=== PATIENT | male | born 1955 | race African-American/Black ===

== ENCOUNTER 2017-01-03 05:52 | Day surgery (SDC) | payer OTHER ==
[~2017-01-03] VITALS: Ht 190.5 cm; Wt 142.9 kg
--- NOTE | ~2017-01-03 | OP ---
Record Of Operation [facility] [address] [place]. [address] NAME: JOYCE SHIELDS : 59 STATUS : [facility]#: [id number] AGE: 61 ADM/REG DATE : 01/03/17 MR#: [id number] REPORT SERV DATE: 01/03/17 DICTATED BY: CHECO CLAYTON DATE: 01/03/17 REPORT STATUS : Draft TRANSCRIBED BY: JUAN DATE: 01/03/17 DATE OF PROCEDURE: 01/03/2017 PREPROCEDURE DIAGNOSIS: A 1 cm left ureteral calculus. POSTPROCEDURE DIAGNOSIS: A 1 cm left ureteral calculus. PROCEDURE: Left ESWL. SECRETARY ADMINISTRATIVE ASSISTANT: Gogo Jean. ANESTHESIA: MAC. HISTORY: Mr. Shields is a 61-year-old gentleman with a large left ureteral calculus. He has previously undergone one attempt at left ESWL with incomplete stone fragmentation. We discussed treatment options and he requested repeat left ESWL. Risks specific to this procedure include, but not limited to bleeding, infection, incomplete stone fragmentation, Steinstrasse, hematoma, injury to neighboring organs, need for further urologic procedures, anesthesia complications, and so forth. I answered all his questions I believe to his satisfaction. Subsequently, he requested the procedure and provided informed written consent. PROCEDURE IN DETAIL: On 01/03/2017, the patient was brought to the lithotripsy suite. He was placed supine on the Dornier Compact Delta II lithotripter. Biplanar fluoroscopy was used to localize the left ureteral calculus. A time-out was called. The proper patient and procedure were confirmed. Levaquin was administered as a perioperative antibiotic. At this time, the Anesthesia team established monitored anesthesia care. Subsequently, we delivered a total of 3000 shocks at a maximum power level of 6 and rate of 120 shocks per minute to the stone. Fluoroscopy time was 1 minute 47 seconds. The patient tolerated the procedure well without immediate complications and was transferred to the recovery area in stable condition. JUAN C/JUAN Checo Clayton M.D. / [id number] CC: Tanvi Rodriges III, M.D.
[~2017-01-03 05:52] MED LIST: ANTIBIOTIC PO; ARTHROTEC 50 PO; ARTHROTEC 75 PO; ASAB PO; COZAAR100 MG PO; CRESTOR PO; CRESTOR10 PO; FLEX PO; FLONASE NAS; GLUCPH PO; LOVAZA1 GM PO; MOBIC15 MG PO; NORV10 PO; PCET PO; RAPAFLO8 MG PO; TESTERONE TOP; ULTRAM50 PO; VIAGRA100 MG PO; VITAMIN D1000 UNI1 PO
== END 2017-01-03 10:07 | disposition home or self-care (01) ==
LOC: SDC 05:52
PROVIDERS: Urology
PROC: 0TF7XZZ Fragmentation in Left Ureter, External Approach (ICD-10-PCS; principal; 2017-01-03 08:00)
DX: N20.1 Calculus of ureter (principal); I10 Essential (primary) hypertension; E11.9 Type 2 diabetes mellitus without complications; E78.00 Pure hypercholesterolemia, unspecified; M19.90 Unspecified osteoarthritis, unspecified site; G47.33 Obstructive sleep apnea (adult) (pediatric); Z99.89 Dependence on other enabling machines and devices; Z87.891 Personal history of nicotine dependence; Z86.718 Personal history of other venous thrombosis and embolism; Z87.442 Personal history of urinary calculi; Z86.711 Personal history of pulmonary embolism; Z95.828 Presence of other vascular implants and grafts; Z96.653 Presence of artificial knee joint, bilateral; Z98.52 Vasectomy status; Z98.890 Other specified postprocedural states; Z88.8 Allergy status to other drugs, medicaments and biological substances; Z79.51 Long term (current) use of inhaled steroids; Z79.84 Long term (current) use of oral hypoglycemic drugs; Z79.899 Other long term (current) drug therapy
CPT/HCPCS: 50590; 74000; 82962; J2250; J2405; J3010